=== PATIENT | male | born 1990 | race Caucasian/White ===

== ENCOUNTER → 2023-08-25 | Outpatient (CLI) | payer OTHER ==
[2023-08-27 20:07] LABS: IMMUNOGLOBULIN A, QN, SERUM 401 mg/dL (90-386); T-TRANSGLUTAMINASE (TTG) IGA 4 U/mL (0-3); T-TRANSGLUTAMINASE (TTG) IGG 11 U/mL (0-5)
== END ==
LOC: LAB SHORT 14:24 → LAB 14:24
PROVIDERS: Student in an Organized Health Care Education/Training Program
DX: E55.9 Vitamin D deficiency, unspecified (principal); R21 Rash and other nonspecific skin eruption
CPT/HCPCS: 82306; 82784; 83516; 86258; 86364